=== PATIENT | female | born 1995 | race American Indian/Alaskan Native ===

== ENCOUNTER 2017-10-15 13:02 | Emergency (ER) | payer OTHER ==
[2017-10-15 15:04] LABS: Basophils % (Auto) 0.8 % (0.0-1.8); Eosinophils # (Auto) 0.1 K/mm3 (0.0-0.4); Hematocrit 37.5 % (30.3-42.9); Hemoglobin 12.4 gm/dl (10.1-14.3); Lymphocytes # (Auto) 1.6 K/mm3 (1.2-5.4); Lymphocytes % (Auto) 28.5 % (13.4-35.0); Mean Corpuscular HGB Conc 33 % (30-34); Mean Corpuscular Hemoglobin 30 pg (28-32); Mean Corpuscular Volume 91 fl (79-97); Monocytes # (Auto) 0.4 K/mm3 (0.0-0.8); Monocytes % (Auto) 7.6 % (0.0-7.3); Platelet Count 205 K/mm3 (140-440); Red Blood Count 4.14 M/mm3 (3.65-5.03)
--- NOTE | 2017-10-15 15:29 | Emergency Department Report ---
ED HPI - General Chief complaint: Vaginal Bleeding Stated complaint: VAGINAL BLEEDING Time Seen by Provider: 10/15/17 14:54 Source: patient Mode of arrival: Ambulatory Limitations: No Limitations - History of Present Illness Initial comments: This is a 22-year-old female nontoxic, well nourished in appearance, no acute signs of distress presents to the ED with c/o of vaginal bleeding x2 day. Patient stated yesterday she noticed some spotting and today had spotting all day. Patient denies any abdominal or pelvic pain. Patient denies any nausea, vomiting, chest pain, shortness of breathe, fever, chills, headache, stiff neck , numbness, tingling. Patient denies any urinary symptoms. Patient denies any allergies. PMH includes asthma. Patient stated is she currently 15 weeks and has been following up with [facility] with normal ultrasound history and testing. MD Complaint: vaginal bleeding -: days(s) (2) Radiation: none Severity scale (0 -10): 0 Improves with: none Worsens with: none Associated symptoms: vaginal bleeding. denies: nausea/vomiting, vaginal discharge, abdominal pain, dysuria, headache, vision changes, malaise, dysparuenia, rash, seizure, shortness of breath, syncope, weakness Vaginal bleeding: light :: Yes Number of weeks : 15 Pre- care: followed by OB, previous ultrasound confi - Related Data Previous Rx's Medication Instructions Recorded Last Taken Type Ibuprofen [Motrin] 600 mg PO Q8H PRN #30 tablet 10/15/17 Unknown Rx Allergies Allergy/AdvReac Type Severity Reaction Status Date / Time No Known Allergies Allergy Unverified 10/15/17 14:09 ED Review of Systems ROS: Stated complaint: VAGINAL BLEEDING Other details as noted in HPI Constitutional: denies: chills, fever Eyes: denies: eye pain, eye discharge, vision change ENT: denies: ear pain, throat pain Respiratory: denies: cough, shortness of breath, wheezing Cardiovascular: denies: chest pain, palpitations Endocrine: no symptoms reported Gastrointestinal: denies: abdominal pain, nausea, diarrhea Genitourinary: abnormal menses. denies: urgency, dysuria, discharge Musculoskeletal: denies: back pain, joint swelling, arthralgia Skin: denies: rash, lesions Neurological: denies: headache, weakness, paresthesias Psychiatric: denies: anxiety, depression Hematological/Lymphatic: denies: easy bleeding, easy bruising ED Past Medical Hx - Past Medical History Previous Medical History?: No - Surgical History Past Surgical History?: No - Social History Smoking Status: Never Smoker Substance Use Type: None - Medications Home Medications: Home Medications Medication Instructions Recorded Confirmed Last Taken Type Ibuprofen [Motrin] 600 mg PO Q8H PRN #30 tablet 10/15/17 Unknown Rx ED Physical Exam - General Limitations: No Limitations General appearance: alert, in no apparent distress - Head Head exam: Present: atraumatic, normocephalic - Eye Eye exam: Present: normal appearance Pupils: Present: normal accommodation - ENT ENT exam: Present: normal exam, mucous membranes moist - Neck Neck exam: Present: normal inspection, full ROM. Absent: tenderness, meningismus, lymphadenopathy - Respiratory Respiratory exam: Present: normal lung sounds bilaterally. Absent: respiratory distress, wheezes, rales, rhonchi, stridor, chest wall tenderness, accessory muscle use, decreased breath sounds, prolonged expiratory - Cardiovascular Cardiovascular Exam: Present: regular rate, normal rhythm, normal heart sounds. Absent: irregular rhythm, systolic murmur, diastolic murmur, rubs, gallop - GI/Abdominal GI/Abdominal exam: Present: soft, normal bowel sounds. Absent: distended, tenderness, guarding, rebound, rigid, diminished bowel sounds - Rectal Rectal exam: Present: deferred - Extremities Exam Extremities exam: Present: normal inspection, full ROM, normal capillary refill. Absent: tenderness - Back Exam Back exam: Present: normal inspection, full ROM. Absent: tenderness, CVA tenderness (R), CVA tenderness (L), muscle spasm, paraspinal tenderness, vertebral tenderness, rash noted - Neurological Exam Neurological exam: Present: alert, oriented X3, normal gait - Psychiatric Psychiatric exam: Present: normal affect, normal mood - Skin Skin exam: Present: warm, dry, intact, normal color. Absent: rash ED Course Vital Signs 10/15/17 10/15/17 14:05 15:19 Temperature 98.9 F Pulse Rate 104 H Respiratory 16 15 Rate Blood Pressure 101/59 O2 Sat by Pulse 96 Oximetry - Reevaluation(s) Reevaluation #1: 10/15/17 15:29 Patient is speaking in full sentences with no signs of distress noted. - Consultations Consultation #1: 10/15/17 16:41 Patient has been consulted with Dr. Jorgensen about patient history, physical exam, and labs/US report and stated he will come in and speak with the patient and examine patient. Consultation #2: 10/15/17 18:23 Dr. Jorgensen came and examined patient and stated to discharge the patient with follow-up. ED Medical Decision Making - Lab Data Result diagrams: 10/15/17 14:48 - Medical Decision Making This is a 22-year-old female presents with demise and miscarriage. Patient is stable and was examined by me. Normal abdominal exam. US OB obtained and dictated by the radiologist. Quantative serum test obtained. Patient notified of the US report with no questions noted by the patient. Dr. Jorgensen from [facility] consulted and came to exam and speak with the patient. RH factor positive. Labs within normal limits. Dr. Jorgensen came and examined patient and stated to discharge the patient with follow-up. At time of discharge, the patient does not seem toxic or ill in appearance. No acute signs of distress noted. Patient agrees to discharge treatment plan of care. No further questions noted by the patient. Critical care attestation.: If time is entered above; I have spent that time in minutes in the direct care of this critically ill patient, excluding procedure time. ED Disposition Clinical Impression: demise, Miscarriage Disposition: [id number] TO HOME OR SELFCARE Is pt being admited?: No Does the pt Need Aspirin: No Condition: Stable Instructions: Intrauterine Demise (ED), Spontaneous Miscarriage (ED) Additional Instructions: Follow-up with a WEB SERVICES DEVELOPER Doctor in 24 hours or if symptoms worsen and continue return to emergency room as soon as possible. Prescriptions: Ibuprofen [Motrin] 600 mg PO Q8H PRN #30 tablet PRN Reason: Pain Referrals: PRIMARY CAREMD [Primary Care Provider] - 3-5 Days [facility] [Provider Group] - 3-5 Days [facility] [Outside] - 3-5 Days [facility] [Outside] - 3-5 Days DEN JORGENSEN MD [Staff Physician] - 24 Hours Forms: Work/School Release Form(ED)
--- NOTE | 2017-10-15 16:05 | Ultrasound Report ---
ULTRASOUND OB LESS THAN 14 WEEKS ULTRASOUND OB TRANSVAGINAL HISTORY: Vaginal bleeding, 15 weeks . COMPARISON: None. TECHNIQUE: Transabdominal and transvaginal ultrasound with color doppler interrogation. FINDINGS: Uterus: The uterus is anteverted and measures 10 x 7 x 8 cm. No uterine mass is appreciated. Normal cervix. Endometrium: An intrauterine is identified. No heart rate could be detected on color Doppler interrogation. Amniotic fluid volume appears decreased. There is echogenic substance surrounding the inferior gestational sac which could represent gas bubbles or hemorrhage. Right ovary: Normal. Left ovary: Normal. No pelvic fluid or mass is identified. Normal color doppler interrogation. IMPRESSION: demise.
--- NOTE | 2017-10-15 18:31 | Consultation ---
History of Present Illness Consult date: 10/15/17 Reason for consult: early problem History of present illness: 22-year-old black female last menstrual period she believes that work this year. Patient states was diagnosed with approximately months ago but had ultrasound at a clinic which did not see heart tones. Presents to the emergency room today because of some increase in bleeding success is not as heavy as. She denies any cramping. Workup included an ultrasound which shows fetus a measuring approximately 10 weeks in size with no heart tones. Patient states that she has an appointment with us on October 17 as a new patient. 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, gonorrhea, herpes Social history: single Medications and Allergies Allergies Allergy/AdvReac Type Severity Reaction Status Date / Time No Known Allergies Allergy Unverified 10/15/17 14:09 Home Medications Medication Instructions Recorded Confirmed Last Taken Type Ibuprofen [Motrin 800 MG tab] 800 mg PO Q6H PRN #30 tablet 10/15/17 Unknown Rx Ibuprofen [Motrin] 600 mg PO Q8H PRN #30 tablet 10/15/17 Unknown Rx Methylergonovine [Methergine] 0.2 mg PO Q8HR #7 tablet 10/15/17 Unknown Rx - Vital Signs Vital signs: Vital Signs Temp Pulse Resp BP Pulse Ox 98.9 F 104 H 16 101/59 96 10/15/17 14:05 10/15/17 14:05 10/15/17 14:05 10/15/17 14:05 10/15/17 14:05 Temp Pulse Resp BP Pulse Ox 98.9 F 104 H 15 101/59 96 10/15/17 14:05 10/15/17 14:05 10/15/17 15:19 10/15/17 14:05 10/15/17 14:05 - Physical Exam Breasts: Positive: deferred Cardiovascular: Regular rate Lungs: Positive: Normal air movement Abdomen: Positive: normal appearance Results Result Diagrams: 10/15/17 14:48 Abnormal lab results 10/15/17 10/15/17 Range/Units 14:48 14:48 [place] % (Auto) 7.6 H (0.0-7.3) % HCG, Quant 2869 H (0-4) mIU/mL All other labs normal. Ultrasound: report reviewed, image reviewed Assessment and Plan - Patient Problems (1) Missed Current Visit: Yes Status: Acute Plan to address problem: Discussed with the patient and her diagnosis. Patient denies any pain. States that the bleeding is not very heavy. Discussed with patient the treatment of expectant management with spontaneous delivery of the miscarriage versus scheduled dilatation and curettage and possibly medication to promote expulsion of the miscarriage. Discussed benefits and risks of each treatment included in the uncertainty of time for the management or the medication and the risks of anesthesia infection and bleeding with the D&C. Patient desires to take medication to assist in passes of the miscarriage. Patient will keep appointment, on October 17. Precautions given to patient as office information.
[2017-10-15 18:59] VITALS: BP 108/72
== END 2017-10-15 18:59 | disposition home or self-care (01) ==
LOC: ED 13:02
DX: O03.9 Complete or unspecified spontaneous abortion without complication (principal); O36.4XX0 Maternal care for intrauterine death, not applicable or unspecified; Z3A.15 15 weeks gestation of pregnancy
CPT/HCPCS: 36415; 76801; 76817; 84702; 85025; 86850; 86900; 86901; 99284

== ENCOUNTER 2020-03-13 07:41 | Emergency (ER) | payer OTHER ==
[2020-03-13] MEDS ORDERED: ACETAMINOPHEN 325 MG TAB PO ONE (13:30)
[2020-03-13] MEDS ORDERED: SODIUM CHLORIDE 0.9% 1000 ML 1,000 ML IV ONE (13:31)
[2020-03-13] MEDS ORDERED: ONDANSETRON 4 MG/2 ML INJ IV ONE (13:31)
--- NOTE | 2020-03-13 13:36 | Emergency Department Report ---
ED Abdominal Pain HPI - General Chief Complaint: Abdominal Pain Stated Complaint: STOMACH PAIN Time Seen by Provider: 03/13/20 13:23 Source: patient Mode of arrival: Ambulatory Limitations: No Limitations - History of Present Illness Initial Comments: 24-year-old female stating that she may be her last menstrual period was 02/04/2020 she is complaining of abdominal pain 02/13 started yesterday. she reports nausea and vomiting. vomited a total of 5 times today. She denies any vaginal bleeding. She denies any vaginal discharge. Patient reports a history of a miscarriage 2 year ago. She has not seen an CONSERVATION SCIENCE TEACHER as yet . schedule an appointment on Sunday to see OB. Patient denies any chest pain shortness of breath fever chills or diarrhea -: days(s) (1) Location: diffuse Radiation: none Migration to: no migration Quality: aching Consistency: constant Worsens With: nothing Associated Symptoms: nausea, vomiting. denies: diarrhea, fever, chills, dysuria, hematemesis, hematochezia, melena, hematuria - Related Data LMP (females 10-50): other (02/04/20) Previous Rx's Medication Instructions Recorded Last Taken Type Ibuprofen [Motrin 800 MG tab] 800 mg PO Q6H PRN #30 tablet 10/15/17 Unknown Rx Ibuprofen [Motrin] 600 mg PO Q8H PRN #30 tablet 10/15/17 Unknown Rx Methylergonovine [Methergine] 0.2 mg PO Q8HR #7 tablet 10/15/17 Unknown Rx Allergies Allergy/AdvReac Type Severity Reaction Status Date / Time No Known Allergies Allergy Unverified 10/15/17 14:09 ED Review of Systems ROS: Stated complaint: STOMACH PAIN Other details as noted in HPI Comment: All other systems reviewed and negative Constitutional: no symptoms reported Eyes: denies: eye pain, eye discharge ENT: denies: ear pain, throat pain, hearing loss Cardiovascular: denies: chest pain, edema Endocrine: denies: no symptoms reported Gastrointestinal: abdominal pain, nausea, vomiting. denies: diarrhea, constipation, hematemesis Skin: denies: rash, lesions, change in color, change in hair/nails Neurological: denies: headache, weakness, numbness, paresthesias Psychiatric: denies: anxiety, depression ED Past Medical Hx - Past Medical History Previous Medical History?: Yes Additional medical history: Miscarriage 2018 - Surgical History Past Surgical History?: No - Social History Smoking Status: Never Smoker Substance Use Type: Alcohol - Medications Home Medications: Home Medications Medication Instructions Recorded Confirmed Last Taken Type Ibuprofen [Motrin 800 MG tab] 800 mg PO Q6H PRN #30 tablet 10/15/17 Unknown Rx Ibuprofen [Motrin] 600 mg PO Q8H PRN #30 tablet 10/15/17 Unknown Rx Methylergonovine [Methergine] 0.2 mg PO Q8HR #7 tablet 10/15/17 Unknown Rx ED Physical Exam - General Limitations: No Limitations General appearance: alert, in no apparent distress - Head Head exam: Present: atraumatic - Eye Eye exam: Present: normal appearance. Absent: conjunctival injection - ENT ENT exam: Present: normal exam - Neck Neck exam: Present: normal inspection - Respiratory Respiratory exam: Present: normal lung sounds bilaterally. Absent: respiratory distress, wheezes, rales, rhonchi - Cardiovascular Cardiovascular Exam: Present: regular rate, normal heart sounds - GI/Abdominal GI/Abdominal exam: Present: soft, tenderness (suprpubic region ), normal bowel sounds. Absent: distended, guarding, rebound, hyperactive bowel sounds, hypoactive bowel sounds - Rectal Rectal exam: Present: deferred - Extremities Exam Extremities exam: Present: normal inspection, normal capillary refill - Back Exam Back exam: Present: normal inspection - Neurological Exam Neurological exam: Present: alert, oriented X3 - Psychiatric Psychiatric exam: Present: normal affect - Skin Skin exam: Present: warm, dry, intact, normal color. Absent: rash ED Course Vital Signs 03/13/20 03/13/20 03/13/20 07:47 13:43 14:43 Temperature 97.8 F Pulse Rate 85 Respiratory 16 18 16 Rate Blood Pressure 102/38 Blood Pressure [Left] O2 Sat by Pulse 99 Oximetry 03/13/20 16:43 Temperature Pulse Rate 84 Respiratory 16 Rate Blood Pressure Blood Pressure 123/63 [Left] O2 Sat by Pulse 99 Oximetry ED Medical Decision Making - Lab Data Result diagrams: 03/13/20 13:45 03/13/20 13:45 - Radiology Data Radiology results: report reviewed US Findings: There is a single, living intrauterine . [place]-rump length = 1.7 cm = 8 weeks, 1 day(s). heart rate is 180 beats per minute. The right ovary is enlarged measuring 7.2 cm in length. The left ovary is not visualized There is no free fluid. Impression: Single, living intrauterine with estimated sonographic age of 8 weeks, 1 day(s). - Medical Decision Making 24-year-old female she came to the emergency room complaining of lower abdominal pain her last menstrual period was 02/04/2020 she denieS any vaginal bleeding or vaginal discharge. is positive her beta hCG quant is 50 [id number]. Ultrasound pelvic ultrasound revealed single living IUP with a heart rate of 180. Patient plans to follow-up with primary [employer] SCIENCE TEACHER Critical Care Time: No Critical care attestation.: If time is entered above; I have spent that time in minutes in the direct care of this critically ill patient, excluding procedure time. ED Disposition Clinical Impression: IUP (intrauterine ), incidental Qualifiers: Weeks of gestation: 8 weeks Qualified Code(s): Z3A.08 - 8 weeks gestation of Disposition: TO HOME OR SELFCARE Is pt being admited?: No Does the pt Need Aspirin: No Condition: Stable Instructions: First Trimester of , Abdominal Pain (ED) Additional Instructions: Findings: US There is a single, living intrauterine . [place]-rump length = 1.7 cm = 8 weeks, 1 day(s). heart rate is 180 beats per minute. The right ovary is enlarged measuring 7.2 cm in length. The left ovary is not visualized There is no free fluid. Impression: Single, living intrauterine with estimated sonographic age of 8 weeks, 1 day(s). Follow up with your OB-FIXER SUPERVISOR as scheduled for Sunday Turn to the emergency room if you develop severe abdominal pain or vaginal bleeding. HCG Quant [id number] Referrals: RUDDY HARO MD [Primary Care Provider] - 3-5 Days MARK PEDERSON MD [Staff Physician] - 3-5 Days Time of Disposition: 16:30
[2020-03-13 13:52] LABS: Hematocrit 39.6 % (30.3-42.9); Hemoglobin 13.4 gm/dl (10.1-14.3); Mean Corpuscular HGB Conc 34 % (30-34); Mean Corpuscular Volume 93 fl (79-97); Platelet Count 240 K/mm3 (140-440); Red Blood Count 4.27 M/mm3 (3.65-5.03); Red Cell Distribution Width 12.3 % (13.2-15.2)
[2020-03-13 13:56] LABS: Blood Urea Nitrogen 8 mg/dL (7-17); Hemolysis Index 13
[2020-03-13 14:00] LABS: BUN/Creatinine Ratio 13
--- NOTE | 2020-03-13 14:56 | Ultrasound Report ---
ULTRASOUND OBSTETRIC Indication: c/o abdominal pain Findings: There is a single, living intrauterine . [place]-rump length = 1.7 cm = 8 weeks, 1 day(s). heart rate is 180 beats per minute. The right ovary is enlarged measuring 7.2 cm in length. The left ovary is not visualized There is no free fluid. Impression: Single, living intrauterine with estimated sonographic age of 8 weeks, 1 day(s). Signer Name: Regan Castro MD Signed: 03/13/2020 2:52 PM Workstation Name: [id number]
[2020-03-13 16:22] LABS: Bilirubin,Urine NEG (Negative); Blood,Urine MOD (Negative); Color,Urine Yellow (Yellow); Mucus,Urine 3+ /HPF; Urobilinogen,Urine < 2.0 mg/dL (<2.0)
[2020-03-13 16:44] VITALS: BP 123/63
== END 2020-03-13 17:02 | disposition home or self-care (01) ==
LOC: ED 07:41
DX: O26.891 Other specified pregnancy related conditions, first trimester (principal); Z3A.08 8 weeks gestation of pregnancy
CPT/HCPCS: 36415; 76801; 80048; 81001; 84702; 84703; 85027; 96361; 96374; 99284; J2405; J7030